=== PATIENT | female | born 1990 | race Caucasian/White ===

== ENCOUNTER 2017-04-26 11:54 | Emergency (ER) | payer SELFPAY ==
[2017-04-26 12:24] LABS: Hyaline Casts/LPF 0-3 HYALINE CAST LPF (0-3 Hyaline); RBC/HPF GREATER THAN 50-TNTC HPF (0-3); Squamous Epithelial None Seen HPF (0-3)
[2017-04-26 12:27] LABS: Nitrite Unable to Interpret (Negative)
[2017-04-26 12:28] LABS: Bilirubin Unable to Interpret (Negative); Ketone, Urine Unable to Interpret mg/dL (Negative); Urobilinogen UNABLE TO INTERPRET mg/dL (0.2-1.0)
[2017-04-26 12:30] LABS: Blood, Urine Large (Negative)
[2017-04-26 12:33] LABS: Glucose, Urine (Dipstick) Negative (Negative); Protein, Urine (Dipstick) 100 mg/dL (Neg-Trace)
[2017-04-26 12:38] LABS: Bacteria/HPF 1+ HPF (None Seen); Yeast-All Forms None Seen HPF (None Seen)
[2017-04-26] MEDS ORDERED: Ketorolac Tromethamine 60 MG/2 ML VIAL ONE (12:42)
[2017-04-26] MEDS ORDERED: Lidocaine 2% PF 5 ML VIAL ONE (13:39)
[2017-04-26] MEDS ORDERED: cefTRIAXone\\ROCEPHIN 500 MG VIAL ONE (13:39)
[2017-04-26] MEDS ORDERED: Acetaminophen 500 MG TAB ONE (14:03)
== END 2017-04-26 14:06 | disposition home or self-care (01) ==
LOC: ERS 11:54
DX: N12 Tubulo-interstitial nephritis, not specified as acute or chronic (principal); Z79.899 Other long term (current) drug therapy
CPT/HCPCS: 81003; 81015; 81025; 87077; 87086; 87186; 96372; J0696; J1885; J2001

== ENCOUNTER 2018-03-30 16:45 | Day surgery (SDC) | payer OTHER ==
[2018-03-30 17:23] VITALS: BMI 40.5
--- NOTE | 2018-03-30 21:25 | CON ---
DATE OF CONSULTATION: 03/30/2018 OB ED NOTE TIME OF SERVICE: 18:15. PRESENTING COMPLAINT: Occasional lower abdominal pain with occasional nausea and 2 episodes of vomit ing. HISTORY OF PRESENT ILLNESS: Ms. Bah is a 27-year-old G3, P1, AB1 at 20 weeks gestation by AGNIESZKA of 0 08/17, who presents complaining of one day of occasional lower abdominal pain. She states that it occ urs several times a day like a band tightening around her waist. She has not had any episodes severa l hours prior to presentation to labor and delivery. She also reports 2 episodes of emesis. Of note , the patient reports she had intercourse last night. She denies vaginal bleeding, discharge, ruptur e of membranes. OB AND SAFETY ADMIN ASSISTANT HISTORY: x1, scheduled for repeat on 08/11/2018, blood type O positive, antibod y negative, Pap negative, rubella immune, VDRL nonreactive, hepatitis B, GC chlamydia negative, NIPT female, normal chromosomes. Patient had a history of preeclampsia in her first . PAST MEDICAL HISTORY: Obesity. PAST SURGICAL HISTORY: at 2012, lap band in 2013, and gastric sleeve in 2015. ALLERGIES: Denies. MEDICATIONS: vitamins. SOCIAL HISTORY: Denies tobacco, alcohol, or drug use. FAMILY HISTORY: Noncontributory. REVIEW OF SYSTEMS: Noncontributory. PHYSICAL EXAMINATION: GENERAL: White female. VITAL SIGNS: 241 pounds, blood pressure 128/72, temperature 98.4, respirations 18, pulse 85. HEENT: Within normal limits. LUNGS: Clear to auscultation bilaterally. HEART: Regular rate and rhythm. ABDOMEN: Soft and nontender. Fundal height of 20 cm. No CVA tenderness is noted. She has no rebou nd and no guarding. Vulva without lesions. Vaginal exam is deferred. EXTREMITIES: Without clubbing, cyanosis, or edema. Intermittent monitoring revealed FHTs in t he 150s. No audible decels were noted. Tocometer was placed for greater than 30 minutes, which reve aled no obvious contractions or uterine activity. Patient's abdominal pain increased moderately with p.o. hydration. IMPRESSION: Discomforts of . No evidence of labor, possible mild gastroenteritis v ersus nausea and vomiting associated with and previous bariatric surgery. PLAN: Continue p.o. hydration, discharge home. Follow up with Dr. Iverson if symptoms worsen or repre sent to the OB ED.
== END 2018-03-30 18:40 | disposition home or self-care (01) ==
LOC: L&D/OP 16:45
PROVIDERS: ATTEND Obstetrics & Gynecology
DX: O99.89 Other specified diseases and conditions complicating pregnancy, childbirth and the puerperium (principal); M54.9 Dorsalgia, unspecified; R10.30 Lower abdominal pain, unspecified; O21.2 Late vomiting of pregnancy; O99.842 Bariatric surgery status complicating pregnancy, second trimester; Z3A.20 20 weeks gestation of pregnancy; Z79.899 Other long term (current) drug therapy
CPT/HCPCS: 99282

== ENCOUNTER 2018-06-02 23:45 | Day surgery (SDC) | payer OTHER ==
[2018-06-02 23:56] VITALS: BP 107/52; TEMP 98.2; BMI 42.0
[2018-06-03] MEDS ORDERED: Lidocaine 2% Viscous Solution 10 ML, Aluminum & Magnesium Hydroxide 30 ML SSW SCH (00:30)
[2018-06-03 01:22] LABS: Albumin 3.3 g/dL (3.5-5.0)
[2018-06-03 01:23] LABS: Chloride 107 mmol/L (98-107); Potassium 3.9 mmol/L (3.5-5.1)
[2018-06-03 01:24] LABS: Calcium 8.8 mg/dL (7.8-10.44); Sodium 138 mmol/L (136-145)
[2018-06-03 01:25] LABS: Globulin 2.8 g/dL (2.4-3.5); Glucose 86 mg/dL (70-105); Protein, Total 6.1 g/dL (6.0-8.3)
[2018-06-03 01:26] LABS: Carbon Dioxide 22 mmol/L (22-29)
[2018-06-03 01:27] LABS: Bilirubin, Total 0.2 mg/dL (0.2-1.2)
[2018-06-03 01:28] LABS: Alkaline Phosphatase 82 U/L (40-150); Calc. Creatinine Clearance 208 mL/min (70-130); Estimated GFR-MDRD Greater than 90
[2018-06-03 01:29] LABS: BUN (Urea Nitrogen) 10 mg/dL (7.0-18.7)
[2018-06-03 01:30] LABS: AST (SGOT) 15 U/L (5-34)
[2018-06-03 01:31] LABS: ALT (SGPT) 11 U/L (8-55); Lipase 25 U/L (8-78)
[2018-06-03 01:46] LABS: Anion Gap 13 mmol/L (10-20)
--- NOTE | 2018-06-03 08:49 | ULT ---
PRELIMINARY REPORT/[facility]/EMERGENTY AFTER-HOURS PROCEDURE US Abdomen Limited, Right Upper Quadrant EXAM DATE/TIME: 06/03/2018 12:36 AM CLINICAL HISTORY: 27 years old, female; Pain and signs and symptoms; Nausea and vomiting; Abdominal pain; Epigastric; P regnant; Additional info: 29 wks TECHNIQUE: Real-time ultrasound of the abdomen with image documentation. Examination was focused on the right up per quadrant. COMPARISON: No relevant prior studies available. FINDINGS: Liver: Mildly enlarged and echogenic/fatty liver. No acute findings. No mass. Gallbladder: Somewhat distended. Mild gallbladder sludge and possible tiny stones/polyps. No gallblad sotero wall thickening or pericholecystic fluid. Negative [place] sign. Common bile duct: Unremarkable. Pancreas: Obscured by bowel gas. Right kidney: Limited visualization due to bowel gas. No acute findings. No mass. No hydronephrosis. IMPRESSION: No acute findings. Mild gallbladder sludge and possible tiny stones/polyps. Thank you for allowing us to participate in the care of your patient. Dictated and Authenticated by: Rasta Baron MD 06/03/2018 1:17 AM Central Time ([place] & [place]) FINAL REPORT GALLBLADDER ULTRASOUND: History: Right upper quadrant pain. FINDINGS: Real-time imaging of the right upper quadrant was performed. This shows sludge within the gallbladder without any definitive signs of stones. The common duct is 3 mm. Technologist reports a negative ult rasound Escobar's sign. The liver is of mild increased echogenicity and measures 17 cm in length. Pancreas is obscured. Right kidney is also partially obscured but appears normal in size and not obst ructed. IMPRESSION: 1. Mildly distended gallbladder with sludge within the gallbladder but no definitive stones. 2. Suggestion of some fatty change of the liver. 3. This report is in agreement with the temporary report issued by [facility]. POS: [facility]
--- NOTE | 2018-06-03 09:42 | PRG ---
DATE OF SERVICE: 06/02/2018 OB ER ENCOUNTER PRIMARY OB: Irais Iverson MD CHIEF COMPLAINT: Epigastric pain. HISTORY OF PRESENT ILLNESS: The patient is a 27-year-old G3, P1 female with an intrauterine at 29 weeks and 2 days, who is presenting after acute onset of pain in the epigastric region upon eating a hamburger. The patient denies any previous events such as this. Denies a history of known gallstones, gastritis, or ulcers. The patient reports that she had 2 episodes of emesis after having this intense pain. The patient does have a history of a lap band procedure, followed by a gastric sleeve, which was placed last July. The patient does admit that her diet has not been consistent with recommendations by her physician, who placed the gastric sleeve. The patient denies any uterine contractions, leakage of fluid, or vaginal bleeding. She denies any recent illness, fever, or fall. She denies headache, chest pain or significant shortness of breath. Denies diarrhea or constipation. The patient does report a "heat rash" earlier this evening that has since resolved. The patient denies hip problems, knee problems, or muscle weakness. Denies vaginal bleeding or leakage of fluid. Denies urinary urgency. PAST MEDICAL HISTORY: Significant for a history of preeclampsia with a prior . PAST SURGICAL HISTORY: She has had a prior , lap band procedure, and a gastric sleeve. ALLERGIES: NO KNOWN DRUG ALLERGIES. MEDICATIONS: vitamins. OB LABORATORY DATA: Blood type is O positive. Antibody screen is negative. She is rubella immune. RPR is nonreactive. GC chlamydia negative. Hepatitis B surface antigen nonreactive. HIV nonreactive. REVIEW OF SYSTEMS: Per HPI. PHYSICAL EXAMINATION: VITAL SIGNS: Blood pressure 102/55, heart rate of 72, respiratory rate of 18, and temperature 98.2. GENERAL: She appears to be in no acute distress. She is alert and oriented, cooperative and pleasant to interact with. HEAD: Normocephalic and atraumatic. LUNGS: Clear to auscultation bilaterally. HEART: Regular rate and rhythm. ABDOMEN: Soft. She has some mid epigastric tenderness to palpation. She has an equivocal Escobar's sign with the lateral aspect of the liver edge without any tenderness and the more epigastric region on gastric side of the liver edge seems to be tender to palpation. EXTREMITIES: Nontender and nonedematous. : Deferred. heart tracing performed and fetus is noted to have a baseline in the 120s with moderate long-term variability, positive 15 x 15 accelerations and no decelerations. She has some irritability on the monitor, but not felt by the patient. LABORATORY DATA: CMP was performed with a sodium of 138, potassium of 3.9, chloride of 107, BUN of 10, creatinine of 0.72, glucose of 86, calcium of 8.8, AST of 15, ALT of 11, alkaline phosphatase of 82, amylase of 26, and lipase of 25. Abdominal ultrasound demonstrates a mildly enlarged echogenic fatty liver with no other acute findings and a somewhat distended gallbladder with mild amount of sludge and possible tiny stones. There is no gallbladder wall thickening or pericolic fluid and negative Escobar's sign on bedside ultrasound. Her common bile duct is unremarkable. Pancreas was obscured by bowel gas and not visualized. IMPRESSION AND PLAN: On impression, she was noted to have some mild gallbladder sludge and possible tiny stones. On repeat evaluation, the patient reports that she has was feeling better and was comfortable to go home with knowledge that there is no acute process at this time. The patient was counseled to follow the diet consistent with her provider's recommendations and I have also recommended that she, for the time being, reduce the amount of fat intake as this will stimulate her gallbladder. She has also been asked to follow up with Dr. Iverson by calling in the morning to update his office. I have notified Dr. Iverson about the patient encounter and is aware of the plan. The patient has a category 1 tracing and is being discharged to home with precautions. Job ID: [id number]
== END 2018-06-03 01:50 | disposition home or self-care (01) ==
LOC: L&D/OP 23:45
PROVIDERS: ATTEND Obstetrics & Gynecology
DX: O99.613 Diseases of the digestive system complicating pregnancy, third trimester (principal); K83.9 Disease of biliary tract, unspecified; Z3A.29 29 weeks gestation of pregnancy; Z98.84 Bariatric surgery status; Z98.890 Other specified postprocedural states
CPT/HCPCS: 36415; 76705; 80053; 82150; 83690; 99284

== ENCOUNTER 2018-06-25 12:41 | Day surgery (SDC) | payer OTHER ==
[2018-06-25] MEDS ORDERED: Ondansetron PF 4 MG/2 ML Vial IVP PRN (14:37)
[2018-06-25] MEDS ORDERED: Acetaminophen 500 MG TAB PO PRN (14:38)
[2018-06-25] MEDS ORDERED: Lactated Ringer's 1,000 ML IV SCH ×2 (14:45)
[2018-06-25] MEDS ORDERED: Acetaminophen 500 MG TAB PO SCH (14:45)
[2018-06-25 14:59] VITALS: BMI 43.7
--- NOTE | 2018-06-25 16:44 | PRG ---
DATE OF SERVICE: 06/25/2018 PRIMARY REMEDIAL PROJECT MANAGER: Dr. Trevor Iverson. CHIEF COMPLAINT: Decreased movement, abdominal pains. HISTORY OF PRESENT ILLNESS: The patient is a 27-year-old, G3, P1 female with an intrauterine at 32 weeks and 3 days, presenting with cough, abdominal pain, and decreased movement. She also reports that she has been having nausea and vomiting, headache, chest pain, shortness of breath, muscle ache, and other flu-like symptoms. She called her clinic doctor, who referred her to the emergency room. The patient had a flu swab collected downstairs and was sent up to Labor and Delivery for further evaluation, as there was some concern that she may be having contractions. The patient upon arrival again reiterated her symptoms as had a couple of days of a cough, started feeling really sick yesterday, last night with nausea and vomiting, headache, heartburn, body aches. She is concerned because her baby has not been moving as much as she used to. She also reports that she has been feeling sharp pelvic pains and her back, lasting about 10 to 15 seconds every 30 minutes or so. The patient was tested for flu downstairs and came back positive for flu type A. PAST MEDICAL HISTORY: Preeclampsia with the first . PAST SURGICAL HISTORY: She had a prior , a lap band procedure, and a gastric sleeve. ALLERGIES: NO KNOWN DRUG ALLERGIES. MEDICATIONS: vitamins. OB LABS: Blood type is O positive. Antibody screen is negative. She is rubella immune. RPR is nonreactive. GC chlamydia negative. Hepatitis B surface antigen is negative. HIV is nonreactive. REVIEW OF SYSTEMS: Per HPI. PHYSICAL EXAMINATION: VITAL SIGNS: Blood pressure 127/60, heart rate of 103, respiratory rate 22, and temperature 100.1. GENERAL: The patient appears to be in no acute distress. She is alert, oriented, cooperative, and pleasant to interact with. HEAD: Normocephalic and atraumatic. LUNGS: Clear to auscultation bilaterally. HEART: Has a regular rate and rhythm. ABDOMEN: Nontender and gravid. EXTREMITIES: Nontender and nonedematous. : Cervix is closed, thick, and high. heart tracing for decreased movement, is noted to have a baseline in the 140s with moderate long-term variability, positive 15 x 15 accelerations, no decelerations. LABORATORY DATA: Flu test was positive for flu type A. ASSESSMENT AND PLAN: The patient is a 27-year-old female G3, P1, with an intrauterine at 32 weeks and 3 days, who is present diagnosed with the flu. The patient has no evidence of labor. Fetus has a category 1 tracing and reactive NST. The patient has been given a liter of LR, Zofran, and her first dose of Tamiflu. The patient is being sent home with 2 labor precautions, instructions to stay hydrated and instructions to follow up with her primary OB as instructed by him. Dr. Iverson, her primary OB, has been notified of the patient's plan. Job ID: [id number]
[2018-06-25] MEDS ORDERED: Oseltamivir 75 MG CAP PO SCH (21:00)
== END 2018-06-25 16:46 | disposition home or self-care (01) ==
LOC: ERS 12:41 → L&D/OP 12:41 → SDC/OP 12:41 → EDSTATUS 12:58 → L&D/OP 16:46
PROVIDERS: ATTEND Obstetrics & Gynecology
DX: O98.513 Other viral diseases complicating pregnancy, third trimester (principal); B33.8 Other specified viral diseases; O36.8130 Decreased fetal movements, third trimester, not applicable or unspecified; Z3A.32 32 weeks gestation of pregnancy; Z98.84 Bariatric surgery status; Z79.899 Other long term (current) drug therapy; Z98.890 Other specified postprocedural states
CPT/HCPCS: 59025; 87804; 96360; 99283; J2405

== ENCOUNTER 2018-07-31 12:57 | Day surgery (SDC) | payer OTHER ==
[2018-07-31 13:43] LABS: #Eosinphils 0.1 thou/uL (0.0-0.7); #Lymphocytes 1.7 thou/uL (1.20-3.40); #Monocytes 0.6 thou/uL (0.11-0.59); #Neutrophils 7.6 thou/uL (1.40-6.50); %Basophils 0.4 % (0.0-1.0); %Eosinophils 0.9 % (0.0-10.0); %Lymphocytes 17.2 % (21.0-51.0); %Monocytes 5.6 % (0.0-10.0); %Neutrophils 75.9 % (42.0-75.0); Hemoglobin 10.1 g/dL (12.0-16.0); Mean Corpuscular HGB CONC 31.7 g/dL (32.0-36.0); Mean Corpuscular Hemoglobin 26.3 pg (27.0-31.0); Mean Corpuscular Volume 83.1 fL (78.0-98.0); Mean Platelet Volume 8.4 fL (7.4-10.4); Platelet Count 253 thou/uL (130-400); Red Blood Cell (RBC) Count 3.84 mill/uL (4.20-5.40)
[2018-07-31 14:00] LABS: ALT (SGPT) 33 U/L (8-55); AST (SGOT) 42 U/L (5-34); Albumin 3.4 g/dL (3.5-5.0); Alkaline Phosphatase 146 U/L (40-150); Anion Gap 13 mmol/L (10-20); BUN (Urea Nitrogen) 9 mg/dL (7.0-18.7); Bilirubin, Total Less than 0.2 mg/dL (0.2-1.2); Calc. Creatinine Clearance 0 mL/min (70-130); Calcium 9.2 mg/dL (7.8-10.44); Carbon Dioxide 25 mmol/L (22-29); Chloride 105 mmol/L (98-107); Estimated GFR-MDRD 84; Globulin 3.2 g/dL (2.4-3.5); Glucose 105 mg/dL (70-105); Potassium 4.5 mmol/L (3.5-5.1); Protein, Total 6.6 g/dL (6.0-8.3); Sodium 138 mmol/L (136-145)
--- NOTE | 2018-07-31 16:02 | ULT ---
RIGHT UPPER QUADRANT ABDOMINAL ULTRASOUND: COMPARISON: 06/03/2018. HISTORY: Right upper quadrant abdominal pain. TECHNIQUE: Multiplanar, broussard scale, and color Doppler images were obtained in a right upper quadrant abdominal u ltrasound. FINDINGS: The liver is normal in echogenicity without focal lesions or intrahepatic ductal dilatation. There a re nonshadowing echogenic foci along the gallbladder wall which may represent small polyps. There is questionable comet-tail artifact adjacent to some of these and this could represent gallbladder wall cholesterolosis. No gallbladder wall thickening is seen. The common bile duct is normal measuring 5 mm. The pancreas cannot be seen secondary to bowel gas. The right kidney is normal in echogenicity witho ut hydronephrosis or calculus and measures 11.1 cm in length. IMPRESSION: Small gallbladder wall polyps with possible gallbladder wall cholesterolosis. POS: [facility]
[2018-07-31 16:58] VITALS: BMI 44.2
--- NOTE | 2018-07-31 17:43 | PDOC.LDHP ---
Labor and Delivery H&P Chief complaint: abdominal pain HPI: 27 y/o at 37w4d, patient of Dr. Iverson, presented to ED with RUQ pain and found to have gallbladder sludge. She was released and sent up for evaluation. Denies VB, LOF, or decreased FM. ROS neg for HEENT, cv, pulm, gi, gu, neuro, psych, skin, musculoskeletal or constitutional symptoms other than mentioned above. OB History Details: 1 prior term LTCS; preeclampsia with that Current complications: none Previous surgical history: low tranverse CS (x1), other (lap band, gastric sleeve) Allergies/Adverse Reactions: Allergies Allergy/AdvReac Type Severity Reaction Status Date / Time No Known Allergies Allergy Verified 06/02/18 23:51 Social history: none - Physical Exam Vital signs reviewed and normal: yes General: NAD, resting Lungs: nonlabored breathing Abdomen: gravid Extremeties: no edema FHT: category 1 (120s, mod variability, + accels, no decels) [place] contractions every: occasional - Vaginal Exam cm dilated: 0 Effacement: 0% Station: -3 - Assessment 27 y/o at 37w4d with abdominal pain secondary to gallbladder sludge. No e/ o active labor. status reassuring with reactive NST. - Plan -: D/c home with precautions. Advised to keep all appointments. Proper diet discussed and patient understands.
--- NOTE | 2018-08-02 15:54 | EKG ---
Test Reason : CP Blood Pressure : / mmHG Vent. Rate : 086 BPM Atrial Rate : 086 BPM P-R Int : 112 ms QRS Dur : 094 ms QT Int : 352 ms P-R-T Axes : 000 155 167 degrees QTc Int : 421 ms Normal sinus rhythm with sinus arrhythmia Right axis deviation Abnormal ECG Confirmed by MARGIE GARDNER, MORRO ([id number]), acquisitions editor SKIP BEARD ([id number]) on 08/02/2018 3:54:02 PM Referred By: Confirmed By:MORRO HANSON MD
== END 2018-07-31 17:56 | disposition home or self-care (01) ==
LOC: L&D/OP 12:57 → ERS 12:57 → EDSTATUS 16:06 → L&D/OP 17:56
PROVIDERS: ATTEND Obstetrics & Gynecology
DX: O99.89 Other specified diseases and conditions complicating pregnancy, childbirth and the puerperium (principal); R10.11 Right upper quadrant pain; K83.8 Other specified diseases of biliary tract
CPT/HCPCS: 36415; 76705; 80053; 83690; 84484; 85025; 93005; 99282

== ENCOUNTER 2018-08-11 05:20 | Inpatient (IN) | payer OTHER ==
[2018-08-11] MEDS ORDERED: Ondansetron PF 4 MG/2 ML Vial IVP PRN ×3 (05:33→08:41)
[2018-08-11] MEDS ORDERED: Lactated Ringer's 1,000 ML IV SCH ×2 (05:33→08:45)
[2018-08-11] MEDS ORDERED: CEFAZOLIN 2 GM in Premix Bag 1 BAG IVPB SCH (05:33)
[2018-08-11] MEDS ORDERED: Bicitra 30 ML UDCUP PO SCH (05:33)
[2018-08-11] MEDS ORDERED: Docusate 100 MG CAP PO PRN (05:33)
[2018-08-11] MEDS ORDERED: Promethazine HCl 25 MG/ML VIAL IM PRN ×2 (05:33→08:07)
[2018-08-11 05:48] VITALS: BMI 44.2
[2018-08-11 06:02] LABS: Hemoglobin 10.4 g/dL (12.0-16.0); Mean Corpuscular Hemoglobin 26.5 pg (27.0-31.0); Mean Corpuscular Volume 80.2 fL (78.0-98.0); Mean Platelet Volume 8.4 fL (7.4-10.4); Platelet Count 300 thou/uL (130-400); RBC Distribution Width 14.3 % (11.5-14.5); Red Blood Cell (RBC) Count 3.93 mill/uL (4.20-5.40); White Blood Cell (WBC) Count 10.2 thou/uL (4.8-10.8)
[2018-08-11 06:39] LABS: HBSAg Index 0.31 S/CO (0-0.99); Hep B Surf Ag Non-Reactive S/CO (NonReactive)
[2018-08-11 06:41] LABS: Syphilis Antibody Nonreactive (Nonreactive); Syphilis Antibody Index 0.04 S/CO (<1.00 Non-Reactive)
[2018-08-11] MEDS ORDERED: MORPHINE 5 MG/10 ML PF VIAL ONE (07:02)
[2018-08-11] MEDS ORDERED: Ondansetron PF 4 MG/2 ML Vial ONE ×2 (07:03→16:13)
[2018-08-11] MEDS ORDERED: PHENYLEPHRINE-NS 100 MCG/ML 10 ML SYRINGE ONE ×2 (07:03→16:13)
[2018-08-11] MEDS ORDERED: Oxytocin 10 UNITS/ML VIAL ONE ×2 (07:03→08:03)
[2018-08-11] MEDS ORDERED: ePHEDrine/0.9% NaCl/PF SYRINGE 50 mg/10 ml ONE (08:02)
[2018-08-11] MEDS ORDERED: diphenhydrAMINE 50 MG/ML VIAL IVP PRN (08:07)
[2018-08-11] MEDS ORDERED: Ondansetron HCl/PF 4 MG/2 ML Vial IVP PRN (08:07)
[2018-08-11] MEDS ORDERED: HYDROmorphone 2 MG/ML VIAL SLOW IVP PRN (08:07)
[2018-08-11] MEDS ORDERED: Naloxone HCl 0.4 mg/ml Vial IVP PRN ×2 (08:07)
[2018-08-11] MEDS ORDERED: L&D-Morphine 4 MG/ML VIAL SLOW IVP PRN (08:07)
[2018-08-11] MEDS ORDERED: Promethazine HCl 25 MG SUPP PR PRN (08:07)
[2018-08-11] MEDS ORDERED: Meperidine HCl/PF 25 MG/ML VIAL SLOW IVP PRN (08:07)
[2018-08-11] MEDS ORDERED: Naloxone HCl 0.4 mg/ml Vial IV PRN (08:07)
[2018-08-11] MEDS ORDERED: Eucerin (Mineral Oil/Petrolatum,White) 30 gm Jar TOP PRN (08:07)
[2018-08-11] MEDS ORDERED: Communication Order-Pharmacy FS SCH (08:15)
[2018-08-11] MEDS ORDERED: Ketorolac Tromethamine 30 MG/ML VIAL IVP SCH (08:15)
[2018-08-11] MEDS ORDERED: Acetaminophen 325 MG TAB PO PRN (08:41)
[2018-08-11] MEDS ORDERED: Bisacodyl 10 MG SUPP PR PRN (08:41)
[2018-08-11] MEDS ORDERED: diphenhydrAMINE 25 MG CAP PO PRN (08:41)
[2018-08-11] MEDS ORDERED: Lanolin Ointment 7 GM TUBE TOP PRN (08:41)
[2018-08-11] MEDS ORDERED: HYDROcodone/Acetaminophen 5/325 mg Tablet PO PRN (08:41)
[2018-08-11] MEDS ORDERED: Zolpidem Tartrate 5 MG TAB PO PRN (08:41)
[2018-08-11] MEDS ORDERED: Meperidine HCl/PF 25 MG/ML VIAL IM PRN (08:41)
[2018-08-11] MEDS ORDERED: Adacel (T-DAP) 0.5 ML SYRINGE IM ONE (08:41)
[2018-08-11] MEDS ORDERED: NS / Oxytocin 40 units/1000ml 1,000 ML IV SCH (08:45)
[2018-08-11] MEDS: Docusate Calcium (SURFAK) 240 MG CAP PO SCH ×2 (11:24→23:20)
[2018-08-11] MEDS: Prenatal Vitamin 1 TAB PO SCH (11:24)
[2018-08-11] MEDS: Ferrous Sulfate 325 MG TAB PO SCH ×2 (11:24→23:20)
[2018-08-11] MEDS: Ketorolac Tromethamine 30 MG/ML VIAL IVP PRN (13:27)
[2018-08-11] MEDS: Ibuprofen 800 MG TAB PO SCH ×2 (13:38→23:20)
[2018-08-11] MEDS ORDERED: ePHEDrine 50 MG/ML VIAL ONE (16:13)
[2018-08-12] MEDS ORDERED: Sodium Chloride 0.9% 10 ML ONE (00:30)
[2018-08-12] MEDS: Ketorolac Tromethamine 30 MG/ML VIAL IVP PRN (00:35)
[2018-08-12] MEDS: Ibuprofen 800 MG TAB PO SCH ×3 (06:07→21:42)
[2018-08-12 07:23] LABS: Hemoglobin 9.2 g/dL (12.0-16.0); Mean Corpuscular HGB CONC 32.9 g/dL (32.0-36.0); Mean Corpuscular Hemoglobin 26.6 pg (27.0-31.0); Mean Platelet Volume 8.2 fL (7.4-10.4); Platelet Count 222 thou/uL (130-400); RBC Distribution Width 14.3 % (11.5-14.5); Red Blood Cell (RBC) Count 3.45 mill/uL (4.20-5.40); White Blood Cell (WBC) Count 8.5 thou/uL (4.8-10.8)
[2018-08-12] MEDS: Ferrous Sulfate 325 MG TAB PO SCH ×2 (08:42→21:43)
[2018-08-12] MEDS: HYDROcodone/Acetaminophen 5/325 mg Tablet PO PRN ×3 (08:43→21:44)
[2018-08-12] MEDS: Docusate Calcium (SURFAK) 240 MG CAP PO SCH ×2 (08:43→21:43)
[2018-08-12] MEDS: Simethicone Chewable 80 MG TAB PO PRN ×2 (08:43→21:43)
[2018-08-12] MEDS: Prenatal Vitamin 1 TAB PO SCH (08:43)
[2018-08-13] MEDS: Ibuprofen 800 MG TAB PO SCH (05:58)
[2018-08-13] MEDS: Simethicone Chewable 80 MG TAB PO PRN (05:58)
[2018-08-13 08:55] VITALS: BP 106/65; TEMP 98.2
[2018-08-13] MEDS: Prenatal Vitamin 1 TAB PO SCH (09:42)
[2018-08-13] MEDS: Ferrous Sulfate 325 MG TAB PO SCH (09:42)
[2018-08-13] MEDS: Docusate Calcium (SURFAK) 240 MG CAP PO SCH (09:42)
== END 2018-08-13 13:00 | disposition home or self-care (01) | DRG 788 ==
LOC: L&D 05:20 → EDSTATUS 08:35 → 3SW 11:00
PROVIDERS: ADMIT Obstetrics & Gynecology; ATTEND Obstetrics & Gynecology
PROC: 10D00Z1 Extraction of Products of Conception, Low, Open Approach (ICD-10-PCS; principal; 2018-08-11)
DX: O34.219 Maternal care for unspecified type scar from previous cesarean delivery (principal); O99.62 Diseases of the digestive system complicating childbirth; K80.20 Calculus of gallbladder without cholecystitis without obstruction; Z37.0 Single live birth; Z3A.39 39 weeks gestation of pregnancy; O99.02 Anemia complicating childbirth; D64.9 Anemia, unspecified
CPT/HCPCS: 36415; 51702; 85027; 86780; 86850; 86900; 86901; 87340; J1885; J2270; J2405; J2590; J3490

== ENCOUNTER 2018-10-01 19:56 | Emergency (ER) | payer OTHER ==
[2018-10-01 20:36] LABS: #Eosinphils 0.1 thou/uL (0.0-0.7); #Lymphocytes 2.5 thou/uL (1.20-3.40); #Monocytes 0.6 thou/uL (0.11-0.59); #Neutrophils 6.4 thou/uL (1.40-6.50); %Basophils 0.3 % (0.0-1.0); %Eosinophils 0.6 % (0.0-10.0); %Lymphocytes 25.8 % (21.0-51.0); %Monocytes 6.1 % (0.0-10.0); %Neutrophils 67.2 % (42.0-75.0); Mean Corpuscular HGB CONC 31.6 g/dL (32.0-36.0); Mean Corpuscular Hemoglobin 25.8 pg (27.0-31.0); Mean Corpuscular Volume 81.7 fL (78.0-98.0); Mean Platelet Volume 8.1 fL (7.4-10.4); Platelet Count 336 thou/uL (130-400); Red Blood Cell (RBC) Count 4.28 mill/uL (4.20-5.40); White Blood Cell (WBC) Count 9.5 thou/uL (4.8-10.8)
[2018-10-01 21:08] LABS: ALT (SGPT) 21 U/L (8-55); AST (SGOT) 34 U/L (5-34); Albumin 4.3 g/dL (3.5-5.0); Alkaline Phosphatase 85 U/L (40-150); Anion Gap 13 mmol/L (10-20); BUN (Urea Nitrogen) 12 mg/dL (7.0-18.7); Bilirubin, Total 0.3 mg/dL (0.2-1.2); Calc. Creatinine Clearance 0 mL/min (70-130); Calcium 9.6 mg/dL (7.8-10.44); Carbon Dioxide 27 mmol/L (22-29); Chloride 104 mmol/L (98-107); Estimated GFR-MDRD 70; Globulin 3.1 g/dL (2.4-3.5); Glucose 106 mg/dL (70-105); Lipase 33 U/L (8-78); Potassium 4.4 mmol/L (3.5-5.1); Protein, Total 7.4 g/dL (6.0-8.3); Sodium 140 mmol/L (136-145)
[2018-10-01 21:27] LABS: Bilirubin Negative (Negative); Blood, Urine Negative (Negative); Clarity Clear (Clear); Glucose, Urine (Dipstick) Negative (Negative); Leukocyte Negative (Negative); Nitrite Negative (Negative); Pregnancy Test - Urine (BHCG) Negative (Negative); Protein, Urine (Dipstick) Negative (Neg-Trace); Specific Gravity, Urine 1.015 (1.005-1.030); Urobilinogen 0.2 mg/dL (0.2-1.0)
[2018-10-01 21:28] LABS: Pregu Control Background? CLEAR/WHITE (CLR/WHITE); Pregu Control Bar Appear? YES (CONTROL BAR); Specific Gravity 1.015 (1.002-1.036)
--- NOTE | 2018-10-01 21:35 | ULT ---
Gallbladder ultrasound. HISTORY: Right upper quadrant pain for 2 days. Comparison made to previous ultrasound from 07/31/2018. The liver is unremarkable. Multiple gallstones seen. A small amount of pericholecystic fluid is seen. A small amount of gallbladder wall thickening seen. Gallbladder wall measures 3.6 mm. No evidence of intrahepatic biliary dilatation seen. Common bile duct is of normal size measuring 3.6 mm. Visualized portion of the pancreas is unremarkable. The right kidney is unremarkable pole to pole measurement measuring 10.2 cm. IMPRESSION: Cholelithiasis. There is some gallbladder wall thickening concerning for cholecystitis.
== END 2018-10-01 23:13 | disposition left against medical advice (07) ==
LOC: ERS 19:56
DX: Z53.21 Procedure and treatment not carried out due to patient leaving prior to being seen by health care provider (principal)
CPT/HCPCS: 36415; 76705; 80053; 81003; 81025; 83690; 85025; 94760

== ENCOUNTER 2018-10-15 10:00 | Day surgery (SDC) | payer OTHER ==
[2018-10-14 13:55] VITALS: BMI 42.2
[2018-10-15] MEDS ORDERED: Levofloxacin 500 mg/D5W 100 ml Premix Bag ONE (11:32)
[2018-10-15] MEDS ORDERED: Ketorolac Tromethamine 30 MG/ML VIAL ONE (11:32)
[2018-10-15] MEDS ORDERED: Fentanyl 100 MCG/2 ML VIAL ONE ×4 (13:08→15:52)
[2018-10-15] MEDS ORDERED: Midazolam HCl 2 mg/2 ml Vial ONE ×2 (13:08→13:54)
[2018-10-15] MEDS ORDERED: Bupivacaine HCl 0.5%/Epinephrine 1:200,000/PF 30 ml Vial ONE (13:09)
[2018-10-15] MEDS ORDERED: HYDROcodone/Acetaminophen 5/325 mg Tablet ONE (16:45)
--- NOTE | 2018-10-16 11:34 | OP ---
DATE OF PROCEDURE: 10/15/2018 PREOPERATIVE DIAGNOSES: Chronic cholecystitis and cholelithiasis. POSTOPERATIVE DIAGNOSES: Chronic cholecystitis and cholelithiasis. PROCEDURE PERFORMED: Laparoscopic video cholecystectomy. ANESTHESIA: General, local 0.5% Marcaine with epinephrine, 30 mL. DESCRIPTION OF PROCEDURE: The patient was taken to the operating room where under general anesthesia, abdomen was prepared with ChloraPrep and draped in routine fashion. Local anesthetic was infiltrated in the skin and subcutaneous tissue about each port site. 0.5% Marcaine with epinephrine was used. Infraumbilical incision was made and pneumoperitoneum to 15 mmHg obtained with a Veress needle, replaced with a 5 port and laparoscope inserted. Right subxiphoid incision was made and 11 port placed, right subcostal incision was made at midclavicular entrance line and the 5 port was placed. The fundus of the gallbladder was grasped at the cephalad. Infundibulum was grasped at the laterally. Cystic artery and duct dissected free. Critical view obtained. Cystic artery and duct double clipped proximally and divided. Gallbladder dissected free from liver bed obtaining good hemostasis prior to division of the final peritoneal attachments. Gallbladder had multiple small stones removed and submitted to Pathology. Good hemostasis ensured with the cautery. Irrigant and pneumoperitoneum evacuated. All instruments were removed and all skin incisions were approximated with subdermal 4-0 Monocryl and [place] glue applied. Job ID: [id number]
== END 2018-10-15 17:20 | disposition home or self-care (01) ==
LOC: SDC 10:00
PROVIDERS: ATTEND Specialist
PROC: 0FT44ZZ Resection of Gallbladder, Percutaneous Endoscopic Approach (ICD-10-PCS; principal; 2018-10-15)
DX: O99.619 Diseases of the digestive system complicating pregnancy, unspecified trimester (principal); K80.12 Calculus of gallbladder with acute and chronic cholecystitis without obstruction; O99.340 Other mental disorders complicating pregnancy, unspecified trimester; F41.9 Anxiety disorder, unspecified; O99.840 Bariatric surgery status complicating pregnancy, unspecified trimester; Z91.041 Radiographic dye allergy status
CPT/HCPCS: 88304; J0131; J0670; J1885; J1956; J2250; J3010

== ENCOUNTER 2018-11-27 09:59 | Emergency (ER) | payer OTHER, SELFPAY ==
[2018-11-27] MEDS ORDERED: Ondansetron ODT 4 MG TAB ONE (11:10)
== END 2018-11-27 11:14 | disposition home or self-care (01) ==
LOC: ERS 09:59
DX: J06.9 Acute upper respiratory infection, unspecified (principal); R11.2 Nausea with vomiting, unspecified; Z79.899 Other long term (current) drug therapy
CPT/HCPCS: 99283; Q0162

== ENCOUNTER 2018-12-02 07:27 | Emergency (ER) | payer SELFPAY ==
[2018-12-02] MEDS ORDERED: Metoclopramide HCl 10 MG/2 ML VIAL ONE (07:46)
[2018-12-02 08:08] LABS: #Eosinphils 0.1 thou/uL (0.0-0.7); #Lymphocytes 1.7 thou/uL (1.20-3.40); #Monocytes 0.4 thou/uL (0.11-0.59); #Neutrophils 2.6 thou/uL (1.40-6.50); %Eosinophils 1.6 % (0.0-10.0); %Lymphocytes 35.1 % (21.0-51.0); %Monocytes 8.3 % (0.0-10.0); Hemoglobin 11.3 g/dL (12.0-16.0); Mean Corpuscular HGB CONC 31.7 g/dL (32.0-36.0); Mean Corpuscular Hemoglobin 25.6 pg (27.0-31.0); Mean Corpuscular Volume 80.8 fL (78.0-98.0); Mean Platelet Volume 7.9 fL (7.4-10.4); Platelet Count 349 thou/uL (130-400); RBC Distribution Width 13.4 % (11.5-14.5); Red Blood Cell (RBC) Count 4.43 mill/uL (4.20-5.40); White Blood Cell (WBC) Count 4.8 thou/uL (4.8-10.8)
--- NOTE | 2018-12-02 08:14 | CT ---
CT BRAIN NONCONTRAST: HISTORY: 27-year-old female status post syncope. FINDINGS: There is no midline shift or any other mass effect. There is no evidence of acute intracranial hemor rhage, large cortical infarct, obstructive hydrocephalus, or extraaxial fluid collection. The calvar ium is intact. IMPRESSION: No acute intracranial findings. jn [] POS: [facility]
[2018-12-02 08:27] LABS: Acetaminophen Less than 6.0 mcg/mL (10.0-30.0); Alcohol Less than 10 mg/dL (Less than 10); Salicylate Less than 8.0 mg/dL (15.0-30.0)
[2018-12-02 08:29] LABS: ALT (SGPT) 16 U/L (8-55); AST (SGOT) 19 U/L (5-34); Albumin 4.1 g/dL (3.5-5.0); Alkaline Phosphatase 79 U/L (40-150); Anion Gap 11 mmol/L (10-20); BUN (Urea Nitrogen) 9 mg/dL (7.0-18.7); Bilirubin, Total 0.3 mg/dL (0.2-1.2); CK (CPK) 130 U/L (29-168); Calc. Creatinine Clearance 0 mL/min (70-130); Calcium 9.8 mg/dL (7.8-10.44); Carbon Dioxide 27 mmol/L (22-29); Chloride 105 mmol/L (98-107); Estimated GFR-MDRD 73; Globulin 3.7 g/dL (2.4-3.5); Glucose 91 mg/dL (70-105); Lipase 29 U/L (8-78); Potassium 3.8 mmol/L (3.5-5.1); Protein, Total 7.8 g/dL (6.0-8.3); Sodium 139 mmol/L (136-145)
--- NOTE | 2018-12-02 08:32 | RAD ---
Chest AP view INDICATION: Syncopal episode COMPARISON: None FINDINGS: Lungs:The lungs are clear Cardiac silhouette pulmonary vasculature:The cardiomediastinal silhouette appears within normal limit s. Pleural spaces:No pleural effusion or pneumothorax is demonstrated. Upper abdomen:No abnormality seen. Osseous structures: No acute osseous abnormality. Additional findings:None. IMPRESSION: No acute cardiopulmonary abnormality.
[2018-12-02 09:05] LABS: BHCG - Serum Negative (NEGATIVE); Pregs Control Background? CLEAR/WHITE (CLR/WHITE); Pregs Control Bar Appear? YES (CONTROL BAR)
[2018-12-02 09:21] LABS: Bilirubin Negative (Negative); Blood, Urine Negative (Negative); Clarity Clear (Clear); Glucose, Urine (Dipstick) Normal (Negative); Leukocyte Negative Leu/uL (Negative); Nitrite Negative (Negative); Protein, Urine (Dipstick) Negative (Neg-Trace); Urobilinogen Normal mg/dL (Less than 2)
[2018-12-02 09:31] LABS: Amphetamine Not Detected (NotDetected); Barbiturates Screen Not Detected (NotDetected); Benzodiazepine Screen Not Detected (NotDetected); Cocaine Metabolite Screen Not Detected (NotDetected); Medtox Control Line Valid? VALID (VALID); Medtox Reader # READER 1; Methadone Not Detected (NotDetected); Methamphetamine Not Detected (NotDetected); Opiate Screen Not Detected (NotDetected); Oxycodone Screen Not Detected (NotDetected); Phencyclidine (PCP) Not Detected (NotDetected); THC/Cannabinoid Screen Not Detected (NotDetected); Tricyclic Screen Not Detected (NotDetected)
[2018-12-02] MEDS ORDERED: Famotidine/PF 20 mg/2ml Vial ONE (09:37)
[2018-12-02] MEDS ORDERED: methylPREDNISolone Sod Succ/PF 125 MG/2 ML VIAL ONE (09:37)
[2018-12-02] MEDS ORDERED: diphenhydrAMINE 50 MG/ML VIAL ONE (09:37)
--- NOTE | 2018-12-02 10:36 | CT ---
CT PULMONARY ANGIOGRAM WITH IV CONTRAST AND 3D POST PROCESSING: HISTORY: A 27-year-old female with syncope. FINDINGS: The pulmonary arterial vasculature is well opacified without filling defects to suggest pulmonary emb olism. The thoracic aorta is opacified without aneurysm or dissection. No pleural or pericardial ef fusions are seen. No pneumothoraces, focal areas of consolidation, pulmonary nodules, or masses are identified. There are degenerative changes in the spine. Postop changes are seen in the stomach. IMPRESSION: No CT evidence of pulmonary embolism. POS: [facility]
[2018-12-02] MEDS ORDERED: ISOVUE-370 76%-LOCM 1 ML ONE (13:04)
== END 2018-12-02 12:00 | disposition home or self-care (01) ==
LOC: ERS 07:27
DX: R55 Syncope and collapse (principal)
CPT/HCPCS: 70450; 71045; 71275; 80053; 80306; 80307; 81003; 82550; 83690; 84146; 84443; 84484; 84703; 85025; 85379; 93005; 96365; 96375; J1200; J2765; J2930; Q9966; S0028

== ENCOUNTER 2018-12-04 11:37 | Emergency (ER) | payer SELFPAY ==
--- NOTE | 2018-12-04 12:00 | RAD ---
EXAM: Single view of the chest HISTORY: Chest pain COMPARISON: 12/02/2018 FINDINGS: Single view of the chest shows a normal sized cardiomediastinal silhouette. There is no saundra dence of consolidation, mass, or pleural effusion. The bones are unremarkable. IMPRESSION: No evidence of acute cardiopulmonary disease
== END 2018-12-04 13:54 | disposition home or self-care (01) ==
LOC: ERS 11:37
DX: R07.2 Precordial pain (principal); F41.9 Anxiety disorder, unspecified
CPT/HCPCS: 71045; 93005

== ENCOUNTER 2019-10-08 17:48 | Day surgery (SDC) | payer BC ==
[2019-10-08 19:15] VITALS: BP 123/56; BMI 42.0
[2019-10-08] MEDS ORDERED: hydrALAZINE 20 MG/ML VIAL SLOW IVP PRN (19:25)
--- NOTE | 2019-10-08 20:08 | ER ---
DATE OF SERVICE: 10/08/2019 TIME OF SERVICE: 1929. PRESENTING COMPLAINT: Decreased movement at 24 weeks and 3 days. HISTORY OF PRESENT ILLNESS: The patient is a 28-year-old, 3, para 2, previous C-sections, at 24 weeks and 3 days. She reports she has had decreased movement for 2 days. No leakage of fluid. Occasional cramps. Some mild nausea. No vomiting. No constipation. Antepartum record is not available on the unit. FACILITY TECHNICIAN HISTORY: Previous . Antepartum record not on the unit. The patient reports no issues. MEDICAL HISTORY: None. SURGICAL HISTORY: . ALLERGIES: DENIES. MEDICATIONS: vitamins. SOCIAL HISTORY: Denies tobacco, alcohol, or IV drug use. FAMILY HISTORY: Noncontributory. REVIEW OF SYSTEMS: Noncontributory. PHYSICAL EXAMINATION: GENERAL: White female, resting comfortably. VITAL SIGNS: Blood pressure 118/82, pulse 85, respirations 18, temperature 98.4. HEENT: Within normal limits. LUNGS: Clear to auscultation bilaterally. HEART: Regular rhythm. ABDOMEN: Soft and nontender with a fundal height of 24. FHTs are 150s. PELVIC: Deferred. EXTREMITIES: Without clubbing, cyanosis, or edema. Monitoring greater than 30 minutes revealed reactive heart rate tracing. Audible movement was heard, and the patient perceived greater than 4 movements in 30 minutes. IMPRESSION: Twenty-four weeks' gestation. Decreased movement, resolved. No evidence of any complications. PLAN: Discharge home. Keep scheduled followup on 10/21, with Dr. Iverson. Job ID: [id number]
== END 2019-10-08 19:40 | disposition home or self-care (01) ==
LOC: L&D/OP 17:48
PROVIDERS: ATTEND Obstetrics & Gynecology
DX: O36.8120 Decreased fetal movements, second trimester, not applicable or unspecified (principal); O34.219 Maternal care for unspecified type scar from previous cesarean delivery; Z3A.24 24 weeks gestation of pregnancy; Z79.82 Long term (current) use of aspirin; Z91.041 Radiographic dye allergy status
CPT/HCPCS: 99282

== ENCOUNTER 2022-01-02 10:17 | Outpatient (CLI) | payer BC | END 2022-01-02 10:18 | disposition home or self-care (01) | LOC: TBSIIMAG 10:17 | PROVIDERS: ATTEND Surgery | DX: M47.26 Other spondylosis with radiculopathy, lumbar region (principal); M47.27 Other spondylosis with radiculopathy, lumbosacral region; M47.25 Other spondylosis with radiculopathy, thoracolumbar region; N94.89 Other specified conditions associated with female genital organs and menstrual cycle | CPT/HCPCS: 72148 ==